=== PATIENT | male | born 1970 | race Caucasian/White ===

== ENCOUNTER 2025-04-12 16:16 | Emergency (ER) | payer MEDICAID ==
[~2025-04-12] VITALS: Ht 170.2 cm; Wt 86.2 kg
[2025-04-12 16:19] VITALS: O2SAT 100
[2025-04-12 16:50] LABS: BASOPHILS % 0.7 % (0.0-2.0); EOSINOPHILS % 6.4 % (0.0-5.0); HEMATOCRIT. 43.9 % (42.0-52.0); HEMOGLOBIN. 14.7 g/dL (14.0-18.0); LYMPHOCYTES % 39.7 % (20.0-50.0); MEAN CORPUSCULAR HEMOGLOBIN 27.9 pg (28.0-32.0); MEAN CORPUSCULAR HGB CONC 33.4 g/dL (31.0-37.0); MEAN CORPUSCULAR VOLUME 83.4 fL (80.0-94.0); MEAN PLATELET VOLUME 8.9 fl (7.4-10.4); MONOCYTES % 8.1 % (2.0-8.0); NEUTROPHILS % 45.1 % (40.0-76.0); PLATELET 179 x1000/uL (130-400); RED BLOOD CELL COUNT 5.26 mill/uL (4.7-6.1); RED CELL DISTRIBUTION WIDTH 14.4 % (11.6-14.6); WHITE BLOOD COUNT 7.7 x1000/uL (4.5-11.0)
[2025-04-12] MEDS: AMLODIPINE 10MG TABLET PO ONE (16:55)
[2025-04-12 17:03] LABS: POTASSIUM 3.5 mEq/L (3.5-5.1)
[2025-04-12 17:04] LABS: CALCIUM 8.9 mg/dL (8.7-10.4)
[2025-04-12 17:09] LABS: CREATININE 1.7 mg/dL (0.6-1.3)
[2025-04-12 17:37] LABS: TROPONIN I HIGH SENSITIVITY 39 ng/L (3.0-53)
[2025-04-12 17:38] LABS: ALANINE AMINOTRANSFERASE 28 IU/L (10-49); ALBUMIN 4.4 g/dL (3.2-4.8); ASPARTATE AMINOTRANSFERASE 31 IU/L (<34); BILIRUBIN DIRECT 0.1 mg/dL (<=3.0); BILIRUBIN TOTAL 0.6 mg/dL (0.1-1.0); PROTEIN TOTAL 6.8 g/dL (6.0-8.3)
[2025-04-12 19:29] LABS: TROPONIN I HIGH SENSITIVITY 34 ng/L (3.0-53)
[2025-04-12 19:54] VITALS: BP 176/114; PULSE 56; RESP 11; TEMP 36.8; O2SAT 98
[2025-04-12] MEDS ORDERED: AMOX1TAB16 MT (19:55)
[2025-04-12] MEDS ORDERED: OFLO5DRO4 RIGHT EAR (19:55)
== END 2025-04-12 20:20 | disposition home or self-care (01) ==
LOC: ER 16:16
DX: H66.91 Otitis media, unspecified, right ear (principal); H60.391 Other infective otitis externa, right ear; E78.00 Pure hypercholesterolemia, unspecified; I10 Essential (primary) hypertension; F32.A Depression, unspecified
CPT/HCPCS: 36415; 71045; 80048; 80076; 84484; 85025; 93005; 99285